=== PATIENT | female | born 1955 | race Caucasian/White ===

== ENCOUNTER 2023-01-06 06:15 | Day surgery (SDC) | payer OTHER, MEDICARE ==
[~2023-01-06] VITALS: Ht 162.6 cm; Wt 103.9 kg
[2023-01-06] MEDS ORDERED: ACETAMINOPHEN I.V. 1000 MG 100 ML IV ONE (07:53)
[2023-01-06 08:16] VITALS: O2SAT 100
[2023-01-06] MEDS ORDERED: LABETALOL 100 MG/ 20ML VIAL IVP PRN (08:45)
[2023-01-06] MEDS ORDERED: METOCLOPRAMIDE HCL 10 MG/2 ML VIAL IVP PRN (08:45)
[2023-01-06] MEDS ORDERED: hydrALAZINE HCL 20 MG/ML VIAL IVP PRN (08:45)
[2023-01-06] MEDS ORDERED: MEPERIDINE HCL/PF 25 MG/ML DISP.SYRIN IVP PRN (08:45)
[2023-01-06] MEDS ORDERED: HYDROmorphone 1 MG/ML INJ. CARTRIDGE IVP PRN ×2 (08:45)
[2023-01-06] MEDS ORDERED: LR 1,000 ML IV SCH (08:45)
[2023-01-06] MEDS ORDERED: WATER FOR IRRIGATION,STERILE 1,000 ML IRRIG.SOLN IR ONE (10:25)
[2023-01-06] MEDS ORDERED: DESFLURANE 15 MIN GAS INH ONE (10:25)
[2023-01-06] MEDS ORDERED: ONDANSETRON HCL 4 MG/2 ML VIAL ONE (10:25)
[2023-01-06] MEDS ORDERED: NS 500 ML IV.SOLN IV ONE (10:25)
[2023-01-06] MEDS ORDERED: fentaNYL CITRATE/PF 100 MCG/2 ML AMP ONE ×2 (10:25)
[2023-01-06] MEDS ORDERED: LIDOCAINE 2%, 20 ML MDV ONE (10:25)
[2023-01-06] MEDS ORDERED: MIDAZOLAM HCL 5 MG/ML VIAL (VERSED) IV ONE (10:25)
[2023-01-06] MEDS ORDERED: SUGAMMADEX SODIUM 200 MG/2 ML VIAL IV ONE (10:25)
[2023-01-06] MEDS ORDERED: ROCURONIUM BROMIDE 10 MG/ML (ZEMURON) ONE (10:25)
[2023-01-06] MEDS ORDERED: LR 1,000 ML IV.SOLN IV ONE (10:25)
[2023-01-06] MEDS ORDERED: PROPOFOL 200MG/ 20ML VIAL (DIPRIVAN) IV ONE (10:25)
[2023-01-06] MEDS ORDERED: OXYMETAZOLINE HCL 0.05% NASAL SPRAY NS ONE (10:25)
[2023-01-06] MEDS ORDERED: EPINEPHrine HCL 1 MG/ML VIAL ONE (10:25)
[2023-01-06] MEDS ORDERED: DEXAMETHASONE SOD PHOSPHATE 4 MG/ML VIAL ONE (10:25)
[2023-01-06 14:46] VITALS: BP_SYST 130; PULSE 80; RESP 18
== END 2023-01-06 13:25 | disposition home or self-care (01) ==
LOC: SMU 06:15 → SDS 06:15
PROVIDERS: ATTEND Otolaryngology
DX: J32.2 Chronic ethmoidal sinusitis (principal); D38.5 Neoplasm of uncertain behavior of other respiratory organs; J01.11 Acute recurrent frontal sinusitis; C50.819 Malignant neoplasm of overlapping sites of unspecified female breast; J34.2 Deviated nasal septum; J34.3 Hypertrophy of nasal turbinates; J34.89 Other specified disorders of nose and nasal sinuses; J30.9 Allergic rhinitis, unspecified; I10 Essential (primary) hypertension; E78.5 Hyperlipidemia, unspecified; E03.9 Hypothyroidism, unspecified; K21.9 Gastro-esophageal reflux disease without esophagitis; M51.36 Other intervertebral disc degeneration, lumbar region; Z79.899 Other long term (current) drug therapy
CPT/HCPCS: 31298; 31256; 87070; 87075; 87101; 88304; 88305; 88311; 31255; J3490; J1100; J0171; J2001; J2250; J2405; J2704; J3010; J7120; J7040; C1726; J0131